=== PATIENT | female | born 1945 | race Caucasian/White ===

== ENCOUNTER 2019-02-28 04:34 | Inpatient (IN) | payer MEDICARE, MEDICAID ==
[~2019-02-28] VITALS: Ht 160 cm; Wt 80.4 kg
[2019-03-02 07:12] VITALS: BP 104/63
== END 2019-03-02 14:22 | disposition home or self-care (01) | DRG 246 ==
LOC: ED 05:20 → EDIP 05:22 → CCU 06:46 → 5SO 03-01 14:20 → DCLOUNGE 03-02 14:22
PROVIDERS: ADMIT Family Medicine; ATTEND Family Medicine
PROC: 027034Z Dilation of Coronary Artery, One Artery with Drug-eluting Intraluminal Device, Percutaneous Approach (ICD-10-PCS; principal; 2019-02-28)
PROC: 4A023N7 Measurement of Cardiac Sampling and Pressure, Left Heart, Percutaneous Approach (ICD-10-PCS; 2019-02-28)
PROC: B2111ZZ Fluoroscopy of Multiple Coronary Arteries using Low Osmolar Contrast (ICD-10-PCS; 2019-02-28)
PROC: B2151ZZ Fluoroscopy of Left Heart using Low Osmolar Contrast (ICD-10-PCS; 2019-02-28)
PROC: B41F1ZZ Fluoroscopy of Right Lower Extremity Arteries using Low Osmolar Contrast (ICD-10-PCS; 2019-02-28)
DX: I21.09 ST elevation (STEMI) myocardial infarction involving other coronary artery of anterior wall (principal); I50.23 Acute on chronic systolic (congestive) heart failure; N17.9 Acute kidney failure, unspecified; D62 Acute posthemorrhagic anemia; I11.0 Hypertensive heart disease with heart failure; E11.65 Type 2 diabetes mellitus with hyperglycemia; I25.10 Atherosclerotic heart disease of native coronary artery without angina pectoris; E78.5 Hyperlipidemia, unspecified; D50.9 Iron deficiency anemia, unspecified; D72.828 Other elevated white blood cell count; F32.9 Major depressive disorder, single episode, unspecified; I25.5 Ischemic cardiomyopathy; M10.9 Gout, unspecified; Z86.73 Personal history of transient ischemic attack (TIA), and cerebral infarction without residual deficits; Z87.891 Personal history of nicotine dependence; Z93.59 Other cystostomy status; Z99.3 Dependence on wheelchair; Z88.8 Allergy status to other drugs, medicaments and biological substances
CPT/HCPCS: 36415; 36600; 71045; 74176; 80047; 80048; 80061; 82803; 82947; 82962; 83036; 83880; 84484; 85014; 85018; 85025; 85610; 85730; 86850; 86900; 87081; 92920; 93005; 93458; 99156; 99157; 99291; C1760; C1769; C1894; C8929; C9600; G0378; J0583; J1644; J1940; J2250; J2405; J3010; Q9957; C1725; C1874; C1887; J1815; J2270; Q9967